=== PATIENT | female | born 1980 | race Caucasian/White ===

== ENCOUNTER → 2021-08-13 | Outpatient (CLI) | payer OTHER ==
--- NOTE | 2021-08-13 15:24 | FL ---
EXAMINATION TYPE: FL hysterosalpingography DATE OF EXAM: 08/13/2021 Comparison: None Clinical History: 41-year-old female Blocked Fallopian tube. Patient reports HSG 6 months ago showing right-sided patency. Nonvisualization of free spillage on the left at that time. Patient with vagina l delivery January 2020. Unable to get since. November 2020 patient had a hysteroscopy with remova l of scar tissue. Total fluoroscopy time: 1 minute. Total images: 15. TECHNIQUE: The cervical opening was cannulated by the undersigned utilizing sterile technique. The ca theter balloon was inflated. Under fluoroscopic guidance, a total of 5 mL Isovue-200 water-soluble co ntrast was injected in a retrograde fashion. Findings: Injection was performed intermittently due to the patient experiencing severe pain. The uterus immedi ately fills with contrast. Some initial small internal filling defects could represent air or some ri ght-sided debris. These filling defects later clear. No contour deformity, septum, or other uterine a nomaly is identified. There was rapid free spillage into the peritoneal cavity on the left. There is eventual, very faint s pillage on the right. The patient could not tolerate a more vigorous injection. Catheter was removed without incident. IMPRESSION: 1. Rapid free spillage from the left fallopian tube into the peritoneum. 2. There was eventual, very faint spillage from the right fallopian tube into the peritoneal cavity. The patient could not tolerate a more vigorous injection and was experiencing severe pain during the injection.
== END | disposition home or self-care (01) ==
LOC: RADUSWWP 12:40
PROVIDERS: ATTEND Obstetrics & Gynecology Reproductive Endocrinology
DX: Z01.812 Encounter for preprocedural laboratory examination (principal)
CPT/HCPCS: 58340; 74740; Q9966